=== PATIENT | female | born 1980 | race Caucasian/White ===

== ENCOUNTER 2018-03-25 13:40 | Emergency (ER) | payer OTHER, SELFPAY ==
[2018-03-25 14:20] LABS: #Basophils 0.1 thou/uL (0.0-0.2); #Eosinphils 0.6 thou/uL (0.0-0.7); #Lymphocytes 3.6 thou/uL (1.20-3.40); #Monocytes 0.8 thou/uL (0.11-0.59); #Neutrophils 8.4 thou/uL (1.40-6.50); %Basophils 0.5 % (0.0-1.0); %Eosinophils 4.5 % (0.0-10.0); %Lymphocytes 26.7 % (21.0-51.0); %Monocytes 5.7 % (0.0-10.0); %Neutrophils 62.6 % (42.0-75.0); Hemoglobin 12.7 g/dL (12.0-16.0); Mean Corpuscular HGB CONC 31.4 g/dL (32.0-36.0); Mean Corpuscular Volume 82.7 fL (78.0-98.0); Mean Platelet Volume 7.9 fL (7.4-10.4); Platelet Count 338 thou/uL (130-400); RBC Distribution Width 14.9 % (11.5-14.5); Red Blood Cell (RBC) Count 4.88 mill/uL (4.20-5.40); White Blood Cell (WBC) Count 13.3 thou/uL (4.8-10.8)
[2018-03-25 14:28] LABS: BHCG - Serum Negative (NEGATIVE); Pregs Control Background? CLEAR/WHITE (CLR/WHITE); Pregs Control Bar Appear? YES (CONTROL BAR)
[2018-03-25 14:41] LABS: ALT (SGPT) 20 U/L (8-55); AST (SGOT) 16 U/L (5-34); Albumin 4.4 g/dL (3.5-5.0); Alkaline Phosphatase 86 U/L (40-150); Anion Gap 17 mmol/L (10-20); BUN (Urea Nitrogen) 11 mg/dL (7.0-18.7); Bilirubin, Total 0.3 mg/dL (0.2-1.2); Calc. Creatinine Clearance 0 mL/min (70-130); Calcium 9.9 mg/dL (7.8-10.44); Carbon Dioxide 19 mmol/L (22-29); Chloride 107 mmol/L (98-107); Estimated GFR-MDRD Greater than 90; Globulin 3.3 g/dL (2.4-3.5); Glucose 83 mg/dL (70-105); Protein, Total 7.7 g/dL (6.0-8.3); Sodium 139 mmol/L (136-145)
[2018-03-25 14:51] LABS: Bilirubin Negative (Negative); Blood, Urine Negative (Negative); Clarity CLEAR (Clear); Glucose, Urine (Dipstick) Negative (Negative); Leukocyte Small (Negative); Nitrite Negative (Negative); Protein, Urine (Dipstick) Negative (Neg-Trace); Specific Gravity, Urine 1.022 (1.002-1.036); Urobilinogen 0.2 mg/dL (0.2-1.0); pH, Urine 5.5 (5.0-9.0)
[2018-03-25 14:53] LABS: Bacteria/HPF Rare-Few HPF (None Seen); Hyaline Casts/LPF 4-6 HYALINE CAST LPF (0-3 Hyaline); Squamous Epithelial 0-3 HPF (0-3)
[2018-03-25 15:00] LABS: Amphetamine Not Detected (NotDetected); Barbiturates Screen Not Detected (NotDetected); Benzodiazepine Screen Not Detected (NotDetected); Cocaine Metabolite Screen Not Detected (NotDetected); Medtox Control Line Valid? VALID (VALID); Medtox Reader # READER 1; Methadone Not Detected (NotDetected); Methamphetamine Not Detected (NotDetected); Opiate Screen Not Detected (NotDetected); Oxycodone Screen Not Detected (NotDetected); Phencyclidine (PCP) Not Detected (NotDetected); THC/Cannabinoid Screen Not Detected (NotDetected); Tricyclic Screen Not Detected (NotDetected)
[2018-03-25 15:05] LABS: RBC/HPF None Seen HPF (0-3)
--- NOTE | 2018-03-25 15:26 | CT ---
CT BRAIN WITHOUT CONTRAST: History: Syncope. FINDINGS: No evidence of infarct, hemorrhage, midline shift or abnormal extraaxial fluid collections are seen. The ventricular size is normal the basilar cisterns patent. Bony calvarium is intact. There is mucosa l disease in the sphenoid sinus. IMPRESSION: No CT evidence of acute intracranial process. POS: C
[2018-03-25] MEDS ORDERED: Ibuprofen 800 MG TAB ONE (16:12)
--- NOTE | 2018-03-25 16:17 | RAD ---
CERVICAL SPINE FOUR VIEWS: History: Fall. Syncope. FINDINGS: Vertebral body heights and AP alignment are maintained. Mild rightward convex curvature on the fronta l view. Cervicothoracic junction is intact. No acute fracture or dislocation. IMPRESSION: No acute osseous abnormalities are demonstrated. POS: [facility]
[2018-03-25] MEDS ORDERED: Cyclobenzaprine 10 MG TAB ONE (17:26)
[2018-03-25] MEDS ORDERED: Acetaminophen 500 MG TAB ONE (18:11)
--- NOTE | 2018-03-29 16:00 | EKG ---
Test Reason : LOC Blood Pressure : / mmHG Vent. Rate : 076 BPM Atrial Rate : 076 BPM P-R Int : 164 ms QRS Dur : 084 ms QT Int : 386 ms P-R-T Axes : 049 021 034 degrees QTc Int : 434 ms Normal sinus rhythm Normal ECG Confirmed by LUISA TROTTER ([id number]), state editor DIEGO RAYO ([id number]) on 03/29/2018 3:59:52 PM Referred By: SERGO Confirmed By:LUISA TROTTER
== END 2018-03-25 18:24 | disposition home or self-care (01) ==
LOC: ERS 13:40
DX: F07.81 Postconcussional syndrome (principal); F19.10 Other psychoactive substance abuse, uncomplicated; K21.9 Gastro-esophageal reflux disease without esophagitis; F32.9 Major depressive disorder, single episode, unspecified; F17.210 Nicotine dependence, cigarettes, uncomplicated; J45.909 Unspecified asthma, uncomplicated; M17.0 Bilateral primary osteoarthritis of knee
CPT/HCPCS: 36415; 70450; 72040; 80053; 80306; 81003; 81015; 84146; 84703; 85025; 93005; 96360; 96361

== ENCOUNTER 2019-08-12 20:59 | Emergency (ER) | payer OTHER ==
[2019-08-12] MEDS ORDERED: Metoclopramide HCl 10 MG/2 ML VIAL ONE (22:13)
--- NOTE | 2019-08-13 09:51 | ULT ---
PELVIC ULTRASOUND: HISTORY: Positive HCG of 200. Pelvic pain. FINDINGS: Real-time imaging of the pelvis was obtained both transabdominally as well as with an endovaginal pro be. Uterus is somewhat retroverted and difficult to assess. It measures 7.5 cm in length. An ill-d efined tiny cystic structure is seen in the fundus region. It measures 6 mm which would correspond t o 5 weeks 2 days, although this is not definitively a gestational sac. No pole or yolk sac fredi ntified. A 2.2 cm right ovarian cyst is noted. The left ovary is not visualized. DOPPLER EVALUATION WITH SPECTRAL ANALYSIS: Normal flow is shown to the right ovary. IMPRESSION: Questionable early intrauterine gestational sac. Followup ultrasound would be recommended. POS: [facility]
== END 2019-08-12 23:24 | disposition home or self-care (01) ==
LOC: ERS 20:59
DX: O26.891 Other specified pregnancy related conditions, first trimester (principal); R10.30 Lower abdominal pain, unspecified; R10.2 Pelvic and perineal pain; O99.341 Other mental disorders complicating pregnancy, first trimester; F41.9 Anxiety disorder, unspecified; F32.9 Major depressive disorder, single episode, unspecified; O99.331 Smoking (tobacco) complicating pregnancy, first trimester; F17.210 Nicotine dependence, cigarettes, uncomplicated; O99.89 Other specified diseases and conditions complicating pregnancy, childbirth and the puerperium; M17.0 Bilateral primary osteoarthritis of knee; Z3A.01 Less than 8 weeks gestation of pregnancy
CPT/HCPCS: 76856; 96374; J2765

== ENCOUNTER 2019-08-14 20:51 | Emergency (ER) | payer OTHER ==
[2019-08-14] MEDS ORDERED: Ondansetron ODT 4 MG TAB ONE (22:12)
--- NOTE | 2019-08-14 22:12 | ULT ---
TRANSABDOMINAL TRANSVAGINAL PELVIC ULTRASOUND DATE:: 08/14/2019 9:11 PM CLINICAL HISTORY: Follow-up of undetermined location. COMPARISON: Prior pelvic ultrasound dated August 12, 2019 TECHNIQUE: Grayscale, color Doppler and spectral Doppler images were obtained of the pelvis see a tra nsabdominal and transvaginal approach FINDINGS: UTERUS: Size: 9.1 x 4.9 x 4.5 cm Mass: None Cervix: Small nabothian cyst is stable Endometrial Thickness: 2 mm. Previously suspected intrauterine gestational sac is no longer identifi ed. OVARIES: Size: Right measures 3.8 x 1.8 x 1.3 cm; Left ovary was not well seen Mass: There is a 1.7 cm cyst within the right ovary.. CUL-DE-SAC: Minimal free fluid IMPRESSION: The small suspected intrauterine gestational sac seen on the comparison examination is no longer iden tified. Findings can be seen with of undetermined location as a pseudogestational sac with ectopic is not entirely excluded. No definite extrauterine mass is demonstrated. Findi ngs also may reflect sequela of a missed . Early is still not excluded. Recommend correlation with beta-hCG.
== END 2019-08-15 00:10 | disposition home or self-care (01) ==
LOC: ERS 20:51
DX: O99.89 Other specified diseases and conditions complicating pregnancy, childbirth and the puerperium (principal); R11.0 Nausea; M19.90 Unspecified osteoarthritis, unspecified site; O99.341 Other mental disorders complicating pregnancy, first trimester; F41.9 Anxiety disorder, unspecified; F32.9 Major depressive disorder, single episode, unspecified; Z87.891 Personal history of nicotine dependence; Z3A.01 Less than 8 weeks gestation of pregnancy
CPT/HCPCS: 36415; 76856; 84702; Q0162

== ENCOUNTER 2019-11-28 22:55 | Emergency (ER) | payer OTHER ==
[2019-11-28 23:35] LABS: Bacteria/HPF 3+ HPF (None Seen); Bilirubin Negative (Negative); Blood, Urine Negative (Negative); Clarity Turbid (Clear); Glucose, Urine (Dipstick) Normal (Negative); Ketone, Urine 20 mg/dL (Negative); Leukocyte 250 Leu/uL (Negative); Nitrite Negative (Negative); Protein, Urine (Dipstick) 20 mg/dL (Neg-Trace); Specific Gravity, Urine 1.025 (1.002-1.036); Urobilinogen Normal mg/dL (Less than 2); WBC/HPF 21-50 HPF (0-3); pH, Urine 5.5 (5.0-9.0)
[2019-11-28 23:50] LABS: #Basophils 0.1 thou/uL (0.0-0.2); #Eosinphils 0.4 thou/uL (0.0-0.7); #Lymphocytes 3.2 thou/uL (1.20-3.40); #Monocytes 0.6 thou/uL (0.11-0.59); #Neutrophils 8.7 thou/uL (1.40-6.50); %Basophils 0.4 % (0.0-1.0); %Eosinophils 2.8 % (0.0-10.0); %Lymphocytes 24.5 % (21.0-51.0); %Monocytes 4.9 % (0.0-10.0); %Neutrophils 67.5 % (42.0-75.0); Hemoglobin 10.7 g/dL (12.0-16.0); Mean Corpuscular HGB CONC 34.8 g/dL (32.0-36.0); Mean Corpuscular Volume 83.2 fL (78.0-98.0); Mean Platelet Volume 8.7 fL (7.4-10.4); Platelet Count 263 thou/uL (130-400); RBC Distribution Width 14.4 % (11.5-14.5); Red Blood Cell (RBC) Count 3.69 mill/uL (4.20-5.40); White Blood Cell (WBC) Count 12.9 thou/uL (4.8-10.8)
[2019-11-29 00:10] LABS: Albumin 3.7 g/dL (3.5-5.0); Anion Gap 15 mmol/L (10-20); BUN (Urea Nitrogen) 7 mg/dL (7.0-18.7); Bilirubin, Total Less than 0.2 mg/dL (0.2-1.2); Calc. Creatinine Clearance 0 mL/min (70-130); Calcium 10.1 mg/dL (7.8-10.44); Carbon Dioxide 22 mmol/L (22-29); Chloride 104 mmol/L (98-107); Estimated GFR-MDRD Greater than 90; Globulin 3.2 g/dL (2.4-3.5); Glucose 142 mg/dL (70-105); Potassium 3.4 mmol/L (3.5-5.1); Protein, Total 6.9 g/dL (6.0-8.3); Sodium 138 mmol/L (136-145)
[2019-11-29 00:11] LABS: ALT (SGPT) Less than 7 U/L (8-55); AST (SGOT) 7 U/L (5-34); Alkaline Phosphatase 85 U/L (40-110)
[2019-11-29] MEDS ORDERED: cefTRIAXone\\ROCEPHIN 1 GM VIAL ONE (01:18)
[2019-11-29] MEDS ORDERED: Acetaminophen 500 MG TAB ONE (01:18)
[2019-11-29] MEDS ORDERED: Lidocaine 2% 10 ML INJ ONE (01:18)
[2019-11-29] MEDS ORDERED: Lidocaine 1% PF 5 ML VIAL ONE (01:20)
== END 2019-11-29 03:00 | disposition home or self-care (01) ==
LOC: ERS 22:55
DX: O23.42 Unspecified infection of urinary tract in pregnancy, second trimester (principal); O20.9 Hemorrhage in early pregnancy, unspecified; O99.342 Other mental disorders complicating pregnancy, second trimester; F41.9 Anxiety disorder, unspecified; F32.9 Major depressive disorder, single episode, unspecified; Z87.891 Personal history of nicotine dependence; Z3A.19 19 weeks gestation of pregnancy
CPT/HCPCS: 36415; 80053; 81003; 81015; 84702; 85025; 86900; 86901; 90384; 96372; J0696

== ENCOUNTER 2020-01-29 20:12 | Day surgery (SDC) | payer OTHER ==
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
[2020-01-29 21:01] VITALS: BMI 27.8
[2020-01-29] MEDS ORDERED: hydrALAZINE 20 MG/ML VIAL SLOW IVP PRN (21:33)
[2020-01-29] MEDS ORDERED: Promethazine 25 MG TAB PO PRN (21:35)
[2020-01-29] MEDS ORDERED: Lactated Ringer's 1,000 ML IV SCH (21:45)
[2020-01-29] MEDS ORDERED: Butorphanol Tartrate 1 MG/ML VIAL IM PRN (22:01)
[2020-01-29] MEDS ORDERED: Butorphanol Tartrate 1 MG/ML VIAL ONE (22:03)
[2020-01-29 22:16] LABS: Bacteria/HPF None Seen HPF (None Seen); Bilirubin Negative (Negative); Blood, Urine Negative (Negative); Clarity Clear (Clear); Glucose, Urine (Dipstick) Normal (Negative); Ketone, Urine Negative (Negative); Leukocyte Negative Leu/uL (Negative); Nitrite Negative (Negative); Protein, Urine (Dipstick) Negative (Neg-Trace); RBC/HPF 0-3 HPF (0-3); Specific Gravity, Urine 1.021 (1.002-1.036); Squamous Epithelial 0-3 HPF (0-3); Urobilinogen Normal mg/dL (Less than 2); WBC/HPF 0-3 HPF (0-3)
[2020-01-29 22:17] LABS: Urine Culture Reflex No No
--- NOTE | 2020-01-29 23:19 | PDOC.BPN ---
- Brief Progress Note VP3 nml UA nml round ligament pain diagnosed will send with a few tylenol #3 for breakthrough pain use tylenol scheduled over the next couple of days F/u with pcp Manuel next week
== END 2020-01-29 23:40 | disposition home or self-care (01) ==
LOC: L&D/OP 20:12
PROVIDERS: ATTEND Obstetrics & Gynecology
DX: O99.891 Other specified diseases and conditions complicating pregnancy (principal); R10.2 Pelvic and perineal pain; M54.9 Dorsalgia, unspecified; N89.8 Other specified noninflammatory disorders of vagina; M17.0 Bilateral primary osteoarthritis of knee; O24.410 Gestational diabetes mellitus in pregnancy, diet controlled; O99.613 Diseases of the digestive system complicating pregnancy, third trimester; K21.9 Gastro-esophageal reflux disease without esophagitis; O99.343 Other mental disorders complicating pregnancy, third trimester; F41.9 Anxiety disorder, unspecified; F32.9 Major depressive disorder, single episode, unspecified; O99.513 Diseases of the respiratory system complicating pregnancy, third trimester; J45.909 Unspecified asthma, uncomplicated; O34.211 Maternal care for low transverse scar from previous cesarean delivery; O09.523 Supervision of elderly multigravida, third trimester; O09.293 Supervision of pregnancy with other poor reproductive or obstetric history, third trimester; Z3A.28 28 weeks gestation of pregnancy; Z79.899 Other long term (current) drug therapy; Z91.410 Personal history of adult physical and sexual abuse
CPT/HCPCS: 51701; 87480; 87510; 87660; 96360; 96361; 96374; 99284; J0595; Q0169

== ENCOUNTER 2020-03-04 23:28 | Day surgery (SDC) | payer OTHER ==
[2020-03-05] MEDS ORDERED: hydrALAZINE 20 MG/ML VIAL SLOW IVP PRN (00:18)
--- NOTE | 2020-03-05 00:20 | PDOC.LDHP ---
Labor and Delivery H&P Chief complaint: other (vaginal pain) HPI: 40YO @ 33.6 WGA presenting for evaluation for vaginal and lower abdominal pain. Reports the pain has been ongoing for the last 2-3 & gotten progressively worse. Rates it 10/10 on exam but was in no distress until UA was collected & pannus had to be lifted. Reports increased vaginal discharge but no change in color or odor. No dysuria but urine has appeared darker than normal. Endorses associated N/V & inability to keep anything down today but no fever/chills. Also endorses B/L lower back pain. No reported hematuria, VB or LOF. +FM. Current gestational age (weeks): 33 (33.6) Due date: 04/12/20 Grav: 5 Para: 3 ([id number]) OB History Details: #1: term ( from sids @ 3 months old) #2: term #3: term LTCS for breech presentation #4: septic @ 4 wks requiring D&C & multiple hospital visits Current complications: gestational diabetes, other (AMA, Rh negative) Abnormal US findings: Yes (LGA fetus per patient) Past Medical History: depression, asthma, anxiety, obesity, anemia, GERD, OA Current medications: pre- vitamins, other (lexapro & PRN albuterol & tylenol) Previous surgical history: low tranverse CS, dilation and curettage, other (tonsillectomy & adenoidectomy, urethral reconstruction surgery) Allergies/Adverse Reactions: Allergies Allergy/AdvReac Type Severity Reaction Status Date / Time No Known Allergies Allergy Verified 03/05/20 00:51 Social history: tobacco use - Physical Exam Vital signs reviewed and normal: yes General: NAD, other (MMM) Heart: RRR Lungs: nonlabored breathing Abdomen: gravid (TTP over and under pannus) Extremeties: normal range of motion FHT: category 1, variability present - OB Labs Blood type: B RH: negative GBS: unknown - Plan Plan: other -: 40YO @ 33.6 WGA presenting for evaluation for vaginal pain and lower abdominal and back pain for the last 2 days. Vaginal pain: VP3 collected on arrival. Patient unable to tolerate speculum exam. UA also collected via straight cath given patient's body habitus which she also barely tolerated. Abdominal and back pain: Pain over & under pannus & with pannus manipulation on exam. Severe intertrigo with sloughing of skin noted on exam likely contributing to her discomfort. Could also be 2/2 a likely UTI but will obtain a CMP to assess kidneys & LFTs. Will ensure patient has nystatin powder for this whether dc'd home or kept overnight. N/V: Suspect most likely 2/2 an acute infection. Will give IV zofran now & 1L LR. Will obtain a CMP to check electrolyte status & encourage PO hydration. A1GDM: Patient reports good control but also reports an LGA fetus per last US. CMP to assess random BG level. sIUP @ 33.6 WGA: Aware. FHTs reassuring w/ reactive NST. No contractions noted on monitor. Has appt w/ primary OB next week. Dispo: Will give IV fluids & IV stadol & zofran for pain & nausea. Further management pending laboratories as described above. Addendum - Attending - Attending Attestation Date/Time: 03/05/20 6935 I personally evaluated the patient and discussed the management with Dr. Davidson. I agree with the History, Examination, Assessment and Plan documented above with any addition or exceptions noted below.
[2020-03-05] MEDS ORDERED: Morphine IR Tab 15 MG TAB PO ONE (00:37)
[2020-03-05 00:50] VITALS: BMI 46.3
[2020-03-05] MEDS ORDERED: Ondansetron ODT 8 MG TAB SL PRN (00:52)
[2020-03-05 00:58] LABS: Bacteria/HPF None Seen HPF (None Seen); Bilirubin Negative (Negative); Blood, Urine Negative (Negative); Calcium Oxalate Crystals 3+ HPF (None Seen); Clarity Clear (Clear); Glucose, Urine (Dipstick) Normal (Negative); Ketone, Urine Negative (Negative); Leukocyte Negative Leu/uL (Negative); Nitrite Negative (Negative); Protein, Urine (Dipstick) 30 mg/dL (Neg-Trace); Specific Gravity, Urine 1.025 (1.002-1.036); pH, Urine 6.5 (5.0-9.0)
[2020-03-05 01:01] LABS: Urine Culture Reflex No No
[2020-03-05] MEDS ORDERED: Butorphanol Tartrate 1 MG/ML VIAL SLOW IVP SCH (01:15)
[2020-03-05] MEDS ORDERED: Lactated Ringer's 1,000 ML IV SCH (01:15)
[2020-03-05] MEDS ORDERED: Ondansetron PF 4 MG/2 ML Vial IVP SCH (01:15)
[2020-03-05 01:57] LABS: #Basophils 0.1 thou/uL (0.0-0.2); #Eosinphils 0.2 thou/uL (0.0-0.7); #Lymphocytes 2.6 thou/uL (1.20-3.40); #Monocytes 0.7 thou/uL (0.11-0.59); #Neutrophils 7.8 thou/uL (1.40-6.50); %Basophils 0.6 % (0.0-1.0); %Lymphocytes 22.9 % (21.0-51.0); %Monocytes 6.2 % (0.0-10.0); %Neutrophils 68.4 % (42.0-75.0); Hemoglobin 11.5 g/dL (12.0-16.0); Mean Corpuscular HGB CONC 34.3 g/dL (32.0-36.0); Mean Corpuscular Hemoglobin 29.3 pg (27.0-31.0); Mean Corpuscular Volume 85.4 fL (78.0-98.0); Mean Platelet Volume 8.5 fL (7.4-10.4); Platelet Count 250 thou/uL (130-400); Red Blood Cell (RBC) Count 3.91 mill/uL (4.20-5.40); White Blood Cell (WBC) Count 11.4 thou/uL (4.8-10.8)
[2020-03-05 02:14] LABS: ALT (SGPT) 8 U/L (8-55); AST (SGOT) 9 U/L (5-34); Albumin 3.5 g/dL (3.5-5.0); Alkaline Phosphatase 109 U/L (40-110); Anion Gap 17 mmol/L (10-20); BUN (Urea Nitrogen) 7 mg/dL (7.0-18.7); Bilirubin, Total 0.2 mg/dL (0.2-1.2); Calc. Creatinine Clearance 259 mL/min (70-130); Calcium 9.5 mg/dL (7.8-10.44); Carbon Dioxide 22 mmol/L (22-29); Chloride 102 mmol/L (98-107); Globulin 3.6 g/dL (2.4-3.5); Glucose 109 mg/dL (70-105); Potassium 3.6 mmol/L (3.5-5.1); Protein, Total 7.1 g/dL (6.0-8.3); Sodium 137 mmol/L (136-145)
--- NOTE | 2020-03-05 02:23 | PDOC.BPN ---
<Vandana Davidson - Last Filed: 03/05/20 02:37> - Brief Progress Note Encounter Date: 03/05/20 Encounter Time: 02:30 40YO @ 33.6 WGA presenting for evaluation for vaginal pain and lower abdominal and back pain for the last 2 days. Vaginal pain: VP3 collected on arrival. Patient unable to tolerate speculum exam. UA via straight cath notable for RBCs, WBCs & protein but also has calcium oxalate crystals & 4-6 squams but no bacteria. Likely just mild contamination from patient not sitting still for exam. Suspected to likely be 2/2 round ligament pain given description of being stabbing in nature. Abdominal and back pain: Pain over & under pannus & with pannus manipulation on exam. Severe intertrigo with sloughing of skin noted on exam likely contributing to her discomfort. However, due to description. Will Rx tinactin powder for this. Encouraged use of belly support belt for coinciding round ligament pain. N/V: Improved s/p zofran. Also s/p 1L LR & tolerating PO. Electrolytes & BUN/Cr WNLs so at most mild dehydration. Encouraged increased PO hydration at home. A1GDM: Patient reports good control but also reports an LGA fetus per last US. Random BG level mildly elevated at 109. sIUP @ 33.6 WGA: Aware. FHTs reassuring w/ reactive NST. No contractions noted on monitor. Has appt w/ primary OB next Saturday & was instructed to keep that appt. Dispo: Will d/c home with nausea and intertrigo meds. Will call with results of VP3 & ensure scripts are sent for this PRN based on results. Suspect at the least vulvovaginal candidiasis based on exam. Also instructed to try belly support belt to help with round ligament pain. Counseled to keep appt w/ Dr. Jackson [facility] for 03/09. <Brady Whitehead - Last Filed: 03/05/20 02:47> Addendum - Attending - Attending Attestation Date/Time: 03/05/20 0397 I personally evaluated the patient and discussed the management with Dr. Davidson. I agree with the History, Examination, Assessment and Plan documented above.
== END 2020-03-05 03:20 | disposition home or self-care (01) ==
LOC: L&D/OP 23:28
PROVIDERS: ATTEND Obstetrics & Gynecology
DX: O99.891 Other specified diseases and conditions complicating pregnancy (principal); R10.2 Pelvic and perineal pain; R10.30 Lower abdominal pain, unspecified; M54.9 Dorsalgia, unspecified; O24.410 Gestational diabetes mellitus in pregnancy, diet controlled; O99.343 Other mental disorders complicating pregnancy, third trimester; F41.9 Anxiety disorder, unspecified; F32.9 Major depressive disorder, single episode, unspecified; O99.513 Diseases of the respiratory system complicating pregnancy, third trimester; J45.909 Unspecified asthma, uncomplicated; O99.213 Obesity complicating pregnancy, third trimester; E66.9 Obesity, unspecified; O99.613 Diseases of the digestive system complicating pregnancy, third trimester; K21.9 Gastro-esophageal reflux disease without esophagitis; O34.211 Maternal care for low transverse scar from previous cesarean delivery; O09.293 Supervision of pregnancy with other poor reproductive or obstetric history, third trimester; O09.523 Supervision of elderly multigravida, third trimester; Z3A.33 33 weeks gestation of pregnancy
CPT/HCPCS: 80053; 81001; 85025; 87480; 87510; 87660; J0595; J2405

== ENCOUNTER 2020-03-27 14:05 | Inpatient (IN) | payer OTHER ==
[2020-03-27 14:58] VITALS: BMI 46.8
[2020-03-27] MEDS ORDERED: hydrALAZINE 20 MG/ML VIAL ONE (15:23)
[2020-03-27] MEDS ORDERED: hydrALAZINE 20 MG/ML VIAL SLOW IVP PRN ×2 (15:26→16:36)
[2020-03-27] MEDS ORDERED: Butorphanol Tartrate 1 MG/ML VIAL SLOW IVP PRN (15:26)
[2020-03-27] MEDS ORDERED: Promethazine HCl 25 MG/ML VIAL IM PRN ×4 (15:26→21:24)
[2020-03-27] MEDS ORDERED: Ondansetron PF 4 MG/2 ML Vial IVP PRN ×4 (15:26→21:24)
[2020-03-27] MEDS ORDERED: Bicitra 30 ML UDCUP PO PRN (15:26)
[2020-03-27] MEDS ORDERED: Famotidine/PF 20 mg/2ml Vial SLOW IVP PRN (15:26)
[2020-03-27] MEDS ORDERED: Azithromycin 500 MG in Sodium Chloride 0.9% 250 ML 250 ML IVPB SCH (15:30)
--- NOTE | 2020-03-27 15:40 | PDOC.FPROB ---
FMR OB H&P: HPI - History of Present Illness Chief Complaint: ctx Indentification: 40yo @ 37.0 complicated by A1GDM History of Present Illness: 40yo @ 37.0 complicated by A1GDM presents for contractions. Patient states she had onset of ctx at 1000 this morning, q10min, increased in intensity and frequency. Also endorses a LOF starting today, slow leak, associated foul- smelling discharge for last few days. Denies fever/chills, dysuria, CP. Endorses mild SOB but states has asthma and has been without her albuterol lately. Endorses DEL RIO, has not tried tylenol today. Denies vision changes, RUQ pain or edema. No vaginal bleeding. Endorses good movement. Primary Care Physician: Manuel FMR OB H&P: Current - Care : 5 Para: 3012 Gestational age: 37 Due date: 04/18/20 Course/Complications: A1GDM, has not checking sugars in past 2 or so weeks - OB Labs Blood type: B RH: negative Antibody Screen: negative HIV: unknown RPR: unknown HepBsAg: negative Rubella: non-immune Quad screen: negative Gonorrhea: negative Chlamydia: negative 1 hour gtt: 144 GBS: negative Additional labs: Hep C negative FMR OB H&P: History - Past Medical History PMH: Mild intermittent asthma, menorrhagia - OB History OB History: 2 - first child from [facility] c/s for breech presentation - most recent A1GDM this - SIGN MAINTENANCE History SIGN MAINTENANCE History: urethral lift No history of STDs PAP with HPV positive - Surgical History Sx History: c/s x1 Deviated septum repair Urethral lift - Social History Social History: Engaged. 0.5ppd smoker, No ETOH during , no illicits - Family History Family History: Adopted. Grandparents had DMII. FMR OB H&P: Medications - Current Home Medications: Medication Instructions Recorded Confirmed Type Escitalopram Oxalate 20 mg PO DAILY 01/29/20 03/27/20 History Pnv No.95/Ferrous Fum/Folic AC 1 tab PO DAILY 01/29/20 03/27/20 History [ Caplet] Allergies/Adverse Reactions: Allergies Allergy/AdvReac Type Severity Reaction Status Date / Time No Known Allergies Allergy Verified 03/05/20 00:51 FMR OB H&P: ROS - Review of Systems General: denies: fever/chills, weight/appetite/sleep changes, night sweats Eyes: denies: vision changes, double vision, scotomas ENT: denies: nasal congestion, rhinorrhea Cardiovascular: denies: chest pain, palpitation Respiratory: reports: shortness of breath. denies: cough, congestion Gastrointestinal: denies: abdominal pain, nausea, vomiting, diarrhea, constipation Genitourinary (Female): reports: vaginal discharge, contractions. denies: dysuria, vaginal bleeding Musculoskeletal: denies: pain Neurologic: denies: numbness, syncope Integumentary: denies: rash Psychological: denies: depression, anxiety FMR OB H&P: Vital Signs - Maternal Vital signs: BP 174/105, repeat 161/96. RR 16, HR 98, 97% RA - Heart Tones Baseline: 140 Variability: moderate Acceleration: present Deceleration: absent Category: category 1 [place] contractions every: q8min FMR OB H&P: Physical Exam - Physical Exam General: NAD, awake, alert and oriented, other (uncomfortably, breathing through ctx) HEENT: PERRLA, EOMI, MMM Neck: trachea midline Heart: RRR, normal S1/S2, no murmurs/rubs/gallops, pulses present, no edema General: CTAB, no respiratory distress, good air movement, no rales/rhonchi, no wheezing Abdomen: soft, gravid, non-tender, bowel sound present Musculoskeletal: normal gait and station, FROM in all four extremities Neurological: no focal deficit Psychiatric: intact recent and remote memory, good judgement and insight, normal mood and affect FMR OB H&P: A/P - Problem List (1) History of section Current Visit: Yes Status: Acute Code(s): Z98.891 - HISTORY OF UTERINE SCAR FROM PREVIOUS SURGERY (2) Gestational diabetes mellitus Current Visit: Yes Status: Acute Code(s): O24.419 - GESTATIONAL DIABETES MELLITUS IN , UNSP CONTROL Qualifiers: Gestational diabetes mellitus control: diet-controlled (3) Hypertension complicating Current Visit: Yes Status: Acute Code(s): O16.9 - UNSPECIFIED MATERNAL HYPERTENSION, UNSPECIFIED TRIMESTER Qualifiers: Trimester: third trimester Qualified Code(s): O16.3 - Unspecified maternal hypertension, third trimester Disposition: 40yo @ 37.0 complicated by A1GDM presents for ctx, LOF and found to have severe range pressure #Term SIUP - 37wk - Complicated by A1GDM - Severe range pressures at presentation, labs obtained, plan to proceed with rLTCS due to term with severe range BP - Ancef 3g and Azithro 500mg - Ctx on monitor, Cat 1 FHT, will continue to monitor - GBS negative #Severe range BP - 3 severe range pressures at presentation - Hydralazine given - CMP, CBC, Ur Pr/Cr - Will need mag for 24 hours - proceed with admission and c/s #A1GDM - Has not been checking sugars past few weeks, previously diet controlled - well check BG with admission labs and monitor as indicated #Mild intermittent asthma - avoid hemabate - aware #Rh negative - Rhogam pp as indicated PCP: Manuel IVF: LR @ 125cc/hr VTE: SCDs Diet: NPO Dispo: PCP notified. Admit for rLTCS at term due to severe range pressures. Pre- E labs obtained. Mag post c/s. Anesthesia consulted. Continued monitoring. Discussion: Date/Time: 03/27/20 0999 This H&P was discussed with Dr. Jackson who agrees with the above documentation a nd plan.
[2020-03-27 15:54] LABS: Hemoglobin 12.4 g/dL (12.0-16.0); Mean Corpuscular HGB CONC 33.6 g/dL (32.0-36.0); Mean Corpuscular Hemoglobin 28.4 pg (27.0-31.0); Mean Corpuscular Volume 84.6 fL (78.0-98.0); Mean Platelet Volume 9.2 fL (7.4-10.4); Platelet Count 242 thou/uL (130-400); Red Blood Cell (RBC) Count 4.36 mill/uL (4.20-5.40); White Blood Cell (WBC) Count 12.8 thou/uL (4.8-10.8)
[2020-03-27] MEDS ORDERED: Azithromycin 500 MG VIAL ONE (15:54)
[2020-03-27] MEDS ORDERED: CEFAZOLIN 3 GM in Sodium Chloride 0.9% 100 ML IVPB SCH (16:00)
[2020-03-27] MEDS ORDERED: Morphine PF 10 MG/10 ML VIAL ONE (16:08)
[2020-03-27] MEDS ORDERED: Phenylephrine 40 MG/NS 250 ML 250 ML ONE (16:08)
[2020-03-27] MEDS ORDERED: Oxytocin 10 UNITS/ML VIAL ONE (16:12)
[2020-03-27] MEDS ORDERED: Lidocaine 1% (PF) 30 ML VIAL ONE (16:31)
[2020-03-27] MEDS ORDERED: Acetaminophen 325 MG TAB PO PRN (16:36)
[2020-03-27] MEDS ORDERED: Adacel (T-DAP) 0.5 ML SYRINGE IM ONE (16:36)
[2020-03-27] MEDS ORDERED: HYDROcodone/Acetaminophen 5/325 mg Tablet PO PRN ×2 (16:36)
[2020-03-27] MEDS ORDERED: Calcium Gluconate 4.6 MEQ in Sodium Chloride 0.9% 100 ML IVPB PRN (16:36)
[2020-03-27] MEDS ORDERED: Succinylcholine 200 MG/10 ml SYRINGE FS ONE (16:41)
[2020-03-27] MEDS ORDERED: PROPOFOL 0 ML ONE (16:41)
[2020-03-27] MEDS ORDERED: Midazolam HCl 2 mg/2 ml Vial ONE ×2 (16:42→17:00)
[2020-03-27] MEDS ORDERED: Ondansetron PF 4 MG/2 ML Vial ONE (16:43)
[2020-03-27] MEDS ORDERED: Dexamethasone 4 mg/ml Vial ONE (16:43)
[2020-03-27] MEDS ORDERED: Magnesium Sulfate 20 GM/WATER 500 ML BAG IVPB SCH (16:45)
[2020-03-27] MEDS ORDERED: Magnesium Sulfate 20 gm/500 ml 20 GM/500 ML BAG IVPB SCH (16:45)
[2020-03-27 16:46] LABS: HBSAg Index 0.12 S/CO (0-0.99); HIV (1/2) Antibody/Antigen Non-Reactive (NonReactive); HIV 1/2 INDEX 0.08 S/CO (<1.00); Hep B Surf Ag Non-Reactive S/CO (NonReactive)
[2020-03-27] MEDS ORDERED: NS w/ Oxytocin 30 units 500 ML IVPB SCH (17:00)
[2020-03-27 17:05] LABS: Syphilis Antibody Nonreactive (Nonreactive); Syphilis Antibody Index 0.06 S/CO (<1.00 Non-Reactive)
[2020-03-27] MEDS ORDERED: Ketorolac Tromethamine 30 MG/ML VIAL ONE (17:08)
[2020-03-27] MEDS ORDERED: Ondansetron HCl/PF 4 MG/2 ML Vial IVP PRN (17:09)
[2020-03-27] MEDS ORDERED: Meperidine HCl/PF 25 MG/ML VIAL SLOW IVP PRN (17:09)
[2020-03-27] MEDS ORDERED: diphenhydrAMINE 50 MG/ML VIAL IVP PRN ×3 (17:09→21:24)
[2020-03-27] MEDS ORDERED: Promethazine HCl 25 MG SUPP PR PRN ×2 (17:09→17:14)
[2020-03-27] MEDS ORDERED: Naloxone HCl 0.4 mg/ml Vial IVP PRN ×4 (17:09→17:14)
[2020-03-27] MEDS ORDERED: HYDROmorphone 2 MG/ML VIAL SLOW IVP PRN (17:09)
[2020-03-27] MEDS ORDERED: L&D-Morphine 4 MG/ML VIAL SLOW IVP PRN (17:09)
[2020-03-27] MEDS ORDERED: Naloxone HCl 0.4 mg/ml Vial IV PRN ×3 (17:09→21:24)
[2020-03-27] MEDS ORDERED: Fentanyl 100 MCG/2 ML VIAL ONE (17:14)
[2020-03-27] MEDS ORDERED: Communication Order-Pharmacy FS SCH ×3 (17:15→21:30)
[2020-03-27 17:20] LABS: ALT (SGPT) 7 U/L (8-55); AST (SGOT) 10 U/L (5-34); Albumin 3.6 g/dL (3.5-5.0); Alkaline Phosphatase 158 U/L (40-110); Anion Gap 17 mmol/L (10-20); BUN (Urea Nitrogen) 7 mg/dL (7.0-18.7); Bilirubin, Total 0.3 mg/dL (0.2-1.2); Calc. Creatinine Clearance 262 mL/min (70-130); Calcium 9.7 mg/dL (7.8-10.44); Carbon Dioxide 21 mmol/L (22-29); Chloride 104 mmol/L (98-107); Globulin 3.1 g/dL (2.4-3.5); Glucose 82 mg/dL (70-105); Magnesium 1.6 mg/dL (1.6-2.6); Potassium 3.9 mmol/L (3.5-5.1); Protein, Total 6.7 g/dL (6.0-8.3); Sodium 138 mmol/L (136-145)
[2020-03-27] MEDS ORDERED: Meperidine HCl/PF 25 MG/ML VIAL ONE (18:15)
--- NOTE | 2020-03-27 18:37 | OP ---
DATE OF PROCEDURE: 03/27/2020 TIME OF SERVICE: 1700 hours. PREOPERATIVE DIAGNOSES: Polyhydramnios, severe gestational hypertension at 37 weeks' gestation, prior section x1. POSTOPERATIVE DIAGNOSES: Polyhydramnios, severe gestational hypertension at 37 weeks' gestation, prior section x1. PROCEDURE PERFORMED: Repeat low-transverse section without extension. SAND CARRIER: Betty Ngo MD for [facility] Obstetric Hospitalist. ANESTHESIA: Dr. Bradley Joe. Subarachnoid block. MEDICATIONS: 3 g Ancef, 500 Zithromax preincision, DVT prophylaxis, SCDs, wound prophylaxis, DARLIN wound vacuum device. DISPOSITION: LICU care for magnesium and postoperative care. DRAINS: Lee to gravity. OPERATIVE FINDINGS: 1. Vigorous male , cephalic presentation to NICU with persistent mild to moderate respiratory distress. Weight and Apgars pending. 2. Significant polyhydramnios encountered at hysterotomy. 3. Normal-appearing placenta. 4. Uterus with adhesions, anterior abdominal wall from prior delivery. HEMOSTASIS: Clear urine. COUNTS: Correct at the end of the procedure. DISPOSITION: Recovery room in good condition. DESCRIPTION OF PROCEDURE: After obtaining appropriate informed consent, the patient was taken to the operating room, where subarachnoid block was achieved without difficulty. The patient was prepped and draped in the usual manner. Previous Pfannenstiel incision was identified, incised sharply, and carried down to the fascia in the midline, extended superiorly and laterally with curved Angulo scissors. Rectus dissected off sharply, superiorly and inferiorly, divided in the midline. Peritoneum entered bluntly, taking care to avoid trauma to the underlying viscera. Adhesions on the left side of the uterus approximately 2 cm above the lower uterine segment were encountered and taken down using Bovie cautery. The Rich O retractor was placed inside. The lower uterine segment was identified and a hysterotomy was made. Suction cannula was introduced to the uterine cavity to pull the amniotic fluid down prior to extension of the hysterotomy. Once the fluid had been pulled down approximately 2.5 L of amniotic fluid, the hysterotomy was extended superiorly and laterally with finger fractionization. 's head elevated to hysterotomy, delivered the rest of the infant on the abdomen, suctioned cord clamped and cut, handed off to the team in attendance. Usual cord blood sample obtained. Placenta delivered manually. Hysterotomy was noted to be without extension, closed using a running continuous 0 chromic locking suture x2 layered closure. Area of the uterine adhesion to the anterior abdominal wall was noted to be bleeding above the level of hysterotomy and was oversewed using 0 chromic in a horizontal mattress fashion and then FloSeal applied against it for 3 minutes with a moist lap sponge. Good hemostasis was noted after placement. Suction irrigation carried out. Reinspection of hysterotomy revealed it to be dry. The Rich O retractor was removed and counts were correct x1. The rectus was inspected and noted to be dry. The fascia was reapproximated with running continuous 0 PDS suture x2. Subcutaneous tissue was irrigated, rendered hemostatic with Bovie cautery, reapproximated using a 2-0 plain gut. Skin reapproximated with awilda and the DARLIN vacuum device applied. The patient was entered into LICU care. Anticipate 2- to 3-day hospitalization. Job ID: [id number]
[2020-03-27 19:57] LABS: SARS-CoV-2 PCR by NAA Not Detected (NotDetected)
[2020-03-27] MEDS ORDERED: HYDROmorphone 0.5 MG/0.5 ML SYRINGE SLOW IVP PRN (20:00)
[2020-03-27] MEDS ORDERED: diphenhydrAMINE 25 MG CAP PO PRN (21:24)
[2020-03-27] MEDS ORDERED: fentaNYL Citrate/PF 2,000 MCG in Sodium Chloride 0.9% 60 ML IV PRN (21:24)
[2020-03-27] MEDS ORDERED: diphenhydrAMINE 50 MG/ML VIAL IM PRN (21:24)
[2020-03-27] MEDS ORDERED: Zolpidem Tartrate 5 MG TAB PO PRN (21:24)
[2020-03-27] MEDS ORDERED: Ibuprofen 800 MG TAB PO SCH (22:00)
[2020-03-27] MEDS ORDERED: Ketorolac Tromethamine 30 MG/ML VIAL IVP SCH (23:15)
[2020-03-28] MEDS ORDERED: Escitalopram Oxalate 20 mg Tablet PO SCH (03:00)
[2020-03-28] MEDS ORDERED: Promethazine 25 MG TAB PO PRN (03:04)
[2020-03-28] MEDS: Lactated Ringer's 1,000 ML IV SCH ×2 (05:24→07:30)
--- NOTE | 2020-03-28 07:59 | DIS ---
DATE OF ADMISSION: 03/27/2020 DATE OF DISCHARGE: 03/28/2020 TIME OF SERVICE: 719 HOSPITAL COURSE: Ms. Carmen is postoperative day #0 from repeat for severe gestational hypertension. Prior section, active labor, 37 weeks gestation. She is being discharged to be transferred over to the [facility]. She is resting comfortably. PHYSICAL EXAMINATION: VITAL SIGNS: Blood pressures are 130s to 140s over 80s. Good urine output. LUNGS: Clear to auscultation bilaterally. HEART: Regular rate and rhythm. ABDOMEN: Soft, nontender. Her incision, intact and dry. DARLIN wound VAC in place. IMPRESSION: Severe gestational hypertension, postoperative day #0. PLAN: Discharge, transferred to [place]. Continue magnesium. Continue Lee. Advanced diet. Anticipate discharge on 03/30 or 03/31. Job ID: [id number]
[2020-03-28] MEDS ORDERED: Ibuprofen 800 MG TAB PO SCH (22:00)
[2020-03-29] MEDS ORDERED: Escitalopram Oxalate 20 mg Tablet PO SCH (09:00)
== END 2020-03-28 07:48 | disposition short-term general hospital (02) | DRG 788 ==
LOC: L&D/OP 14:05 → L&D 16:23
PROVIDERS: ADMIT Obstetrics & Gynecology; ATTEND Obstetrics & Gynecology
PROC: 10D00Z1 Extraction of Products of Conception, Low, Open Approach (ICD-10-PCS; principal; 2020-03-24)
DX: O34.211 Maternal care for low transverse scar from previous cesarean delivery (principal); O40.3XX0 Polyhydramnios, third trimester, not applicable or unspecified; Z20.822 Contact with and (suspected) exposure to COVID-19; O24.429 Gestational diabetes mellitus in childbirth, unspecified control; J45.20 Mild intermittent asthma, uncomplicated; O99.513 Diseases of the respiratory system complicating pregnancy, third trimester; O99.334 Smoking (tobacco) complicating childbirth; F17.200 Nicotine dependence, unspecified, uncomplicated; O13.4 Gestational [pregnancy-induced] hypertension without significant proteinuria, complicating childbirth; Z3A.37 37 weeks gestation of pregnancy; Z37.0 Single live birth
CPT/HCPCS: 36415; 51702; 80053; 81003; 82570; 83735; 85027; 86780; 86850; 86870; 86900; 86901; 87340; 87389; 87635; 88307; 99285; J0360; J0456; J0690; J1100; J1170; J1885; J2001; J2175; J2250; J2270; J2405; J2704; J3010; J3475; J3490; Q0169; U0003; U0005

== ENCOUNTER 2021-01-08 22:14 | Inpatient (IN) | payer OTHER ==
[2021-01-08 22:40] VITALS: BMI 43.9
[2021-01-09] MEDS ORDERED: Ondansetron HCl/PF 4 MG in Sodium Chloride 0.9% 50 ML IVPB PRN (00:08)
[2021-01-09] MEDS: Ondansetron PF 4 MG/2 ML Vial IVP PRN (03:42)
[2021-01-09] MEDS: Morphine 4 MG/ML VIAL SLOW IVP PRN ×5 (03:42→22:57)
[2021-01-09] MEDS ORDERED: Acetaminophen 650 MG Suppository PR PRN (04:15)
[2021-01-09 05:27] LABS: #Eosinphils 0.5 thou/uL (0.0-0.7); #Lymphocytes 2.6 thou/uL (1.20-3.40); #Monocytes 0.6 thou/uL (0.11-0.59); #Neutrophils 6.5 thou/uL (1.40-6.50); %Basophils 0.3 % (0.0-1.0); %Lymphocytes 25.2 % (21.0-51.0); %Monocytes 6.2 % (0.0-10.0); %Neutrophils 63.3 % (42.0-75.0); Hemoglobin 11.9 g/dL (12.0-16.0); Mean Corpuscular HGB CONC 32.7 g/dL (32.0-36.0); Mean Corpuscular Hemoglobin 27.7 pg (27.0-31.0); Mean Corpuscular Volume 84.6 fL (78.0-98.0); Mean Platelet Volume 7.3 fL (7.4-10.4); Platelet Count 330 thou/uL (130-400); RBC Distribution Width 13.5 % (11.5-14.5); Red Blood Cell (RBC) Count 4.31 mill/uL (4.20-5.40); White Blood Cell (WBC) Count 10.3 thou/uL (4.8-10.8)
[2021-01-09 05:48] LABS: Anion Gap 13 mmol/L (10-20); BUN (Urea Nitrogen) 7 mg/dL (7.0-18.7); Calc. Creatinine Clearance 229 mL/min (70-130); Calcium 9.3 mg/dL (7.8-10.44); Carbon Dioxide 23 mmol/L (22-29); Chloride 103 mmol/L (98-107); Glucose 110 mg/dL (70-105); Potassium 3.8 mmol/L (3.5-5.1); Sodium 135 mmol/L (136-145)
[2021-01-09] MEDS: Sodium Chloride 0.9% 1,000 ML IV SCH ×2 (06:24→16:31)
[2021-01-09] MEDS: HYDROcodone/Acetaminophen 10/325 mg Tablet PO PRN ×2 (06:54→19:46)
[2021-01-09] MEDS: Acetaminophen 325 MG TAB PO PRN (07:51)
[2021-01-09] MEDS: Enoxaparin Sodium 40 MG/0.4 ML SYRINGE SC SCH (07:52)
[2021-01-09] MEDS ORDERED: FLU VACC QS2021-22(6MOS UP)/PF 60 MCG/0.5 ML SYRINGE IM ONE (09:00)
[2021-01-09] MEDS: Pantoprazole 40 MG VIAL IVP SCH (10:59)
[2021-01-09 11:21] LABS: SARS-CoV-2 PCR by NAA Not Detected (NotDetected)
[2021-01-09] MEDS ORDERED: Morphine 4 MG/ML VIAL SLOW IVP PRN (13:38)
[2021-01-09] MEDS: busPIRone HCl 5 MG TAB PO SCH (19:48)
[2021-01-09] MEDS: Docusate 100 MG CAP PO SCH (19:48)
[2021-01-09] MEDS ORDERED: Melatonin 3 MG TAB PO SCH (21:15)
[2021-01-10] MEDS: Sodium Chloride 0.9% 1,000 ML IV SCH (02:05)
[2021-01-10] MEDS: Acetaminophen 325 MG TAB PO PRN ×2 (06:31→16:45)
[2021-01-10] MEDS: Ondansetron PF 4 MG/2 ML Vial IVP PRN ×2 (06:36→19:53)
[2021-01-10 07:08] LABS: #Eosinphils 0.5 thou/uL (0.0-0.7); #Lymphocytes 3.1 thou/uL (1.20-3.40); #Monocytes 0.7 thou/uL (0.11-0.59); #Neutrophils 6.2 thou/uL (1.40-6.50); %Basophils 0.4 % (0.0-1.0); %Eosinophils 4.6 % (0.0-10.0); %Lymphocytes 29.4 % (21.0-51.0); %Monocytes 6.3 % (0.0-10.0); %Neutrophils 59.3 % (42.0-75.0); Hemoglobin 11.6 g/dL (12.0-16.0); Mean Corpuscular HGB CONC 31.5 g/dL (32.0-36.0); Mean Corpuscular Hemoglobin 26.6 pg (27.0-31.0); Mean Corpuscular Volume 84.6 fL (78.0-98.0); Mean Platelet Volume 7.5 fL (7.4-10.4); Platelet Count 328 thou/uL (130-400); RBC Distribution Width 13.5 % (11.5-14.5); Red Blood Cell (RBC) Count 4.35 mill/uL (4.20-5.40); White Blood Cell (WBC) Count 10.5 thou/uL (4.8-10.8)
[2021-01-10 07:18] LABS: ALT (SGPT) 16 U/L (8-55); AST (SGOT) 15 U/L (5-34); Albumin 3.5 g/dL (3.5-5.0); Alkaline Phosphatase 67 U/L (40-110); Anion Gap 10 mmol/L (10-20); BUN (Urea Nitrogen) 9 mg/dL (7.0-18.7); Bilirubin, Total 0.2 mg/dL (0.2-1.2); Calc. Creatinine Clearance 219 mL/min (70-130); Calcium 9.1 mg/dL (7.8-10.44); Carbon Dioxide 28 mmol/L (22-29); Chloride 105 mmol/L (98-107); Globulin 2.9 g/dL (2.4-3.5); Glucose 111 mg/dL (70-105); Potassium 3.8 mmol/L (3.5-5.1); Protein, Total 6.4 g/dL (6.0-8.3); Sodium 139 mmol/L (136-145)
[2021-01-10] MEDS: FLUoxetine HCl 10 MG CAP PO SCH (11:01)
[2021-01-10] MEDS: busPIRone HCl 5 MG TAB PO SCH ×2 (11:01→19:53)
[2021-01-10] MEDS: Enoxaparin Sodium 40 MG/0.4 ML SYRINGE SC SCH (11:01)
[2021-01-10] MEDS: Docusate 100 MG CAP PO SCH ×2 (11:01→19:53)
[2021-01-10] MEDS: Morphine 4 MG/ML VIAL SLOW IVP PRN ×2 (11:02→15:16)
[2021-01-10] MEDS: Pantoprazole 40 MG VIAL IVP SCH (11:02)
[2021-01-10] MEDS: HYDROcodone/Acetaminophen 10/325 mg Tablet PO PRN (19:52)
[2021-01-11] MEDS: Morphine 4 MG/ML VIAL SLOW IVP PRN ×2 (00:59→04:48)
[2021-01-11 08:01] VITALS: BP 112/69; TEMP 97.9
[2021-01-11] MEDS: FLUoxetine HCl 10 MG CAP PO SCH (08:22)
[2021-01-11] MEDS: busPIRone HCl 5 MG TAB PO SCH (08:22)
[2021-01-11] MEDS: Docusate 100 MG CAP PO SCH (08:23)
[2021-01-11] MEDS: Ondansetron PF 4 MG/2 ML Vial IVP PRN (08:23)
[2021-01-11] MEDS: Enoxaparin Sodium 40 MG/0.4 ML SYRINGE SC SCH (08:23)
== END 2021-01-11 11:15 | disposition home or self-care (01) | DRG 392 ==
LOC: T4-B 22:14 → INTOOBSV 22:14 → OBSVTOIN 01-10 14:41
PROVIDERS: ADMIT Student in an Organized Health Care Education/Training Program; ATTEND Family Medicine
DX: R10.13 Epigastric pain (principal); Z68.41 Body mass index [BMI] 40.0-44.9, adult; F17.210 Nicotine dependence, cigarettes, uncomplicated; E66.01 Morbid (severe) obesity due to excess calories; N32.89 Other specified disorders of bladder; Z87.440 Personal history of urinary (tract) infections; K90.0 Celiac disease; N20.0 Calculus of kidney; Z20.822 Contact with and (suspected) exposure to COVID-19; M19.90 Unspecified osteoarthritis, unspecified site; K21.9 Gastro-esophageal reflux disease without esophagitis; D64.9 Anemia, unspecified; Z90.710 Acquired absence of both cervix and uterus; Z88.8 Allergy status to other drugs, medicaments and biological substances; Z79.899 Other long term (current) drug therapy; F41.9 Anxiety disorder, unspecified; F32.A Depression, unspecified
CPT/HCPCS: 36415; 36416; 76705; 78227; 80048; 80053; 85025; A9537; C9113; J1650; J2270; J2405; J7050; U0003; U0005

== ENCOUNTER 2021-09-26 17:27 | Emergency (ER) | payer OTHER ==
[2021-09-26 18:17] LABS: #Basophils 0.1 thou/uL (0.0-0.2); #Eosinphils 0.4 thou/uL (0.0-0.7); #Lymphocytes 4.3 thou/uL (1.20-3.40); #Monocytes 0.7 thou/uL (0.11-0.59); #Neutrophils 7.5 thou/uL (1.40-6.50); %Basophils 0.7 % (0.0-1.0); %Eosinophils 2.8 % (0.0-10.0); %Lymphocytes 33.3 % (21.0-51.0); %Monocytes 5.5 % (0.0-10.0); %Neutrophils 57.7 % (42.0-75.0); Hemoglobin 13.3 g/dL (12.0-16.0); Mean Corpuscular HGB CONC 32.2 g/dL (32.0-36.0); Mean Corpuscular Hemoglobin 27.4 pg (27.0-31.0); Mean Corpuscular Volume 85.2 fL (78.0-98.0); Mean Platelet Volume 8.3 fL (7.4-10.4); Platelet Count 267 thou/uL (130-400); RBC Distribution Width 13.3 % (11.5-14.5); Red Blood Cell (RBC) Count 4.86 mill/uL (4.20-5.40); White Blood Cell (WBC) Count 12.9 thou/uL (4.8-10.8)
[2021-09-26 18:27] LABS: BHCG - Serum Negative (NEGATIVE); Pregs Control Background? CLEAR/WHITE (CLR/WHITE); Pregs Control Bar Appear? YES (CONTROL BAR)
[2021-09-26 18:35] LABS: ALT (SGPT) 23 U/L (8-55); AST (SGOT) 21 U/L (5-34); Albumin 4.6 g/dL (3.5-5.0); Alkaline Phosphatase 90 U/L (40-110); Anion Gap 13 mmol/L (10-20); BUN (Urea Nitrogen) 8 mg/dL (7.0-18.7); Bilirubin, Total 0.4 mg/dL (0.2-1.2); Calc. Creatinine Clearance 0 mL/min (70-130); Carbon Dioxide 25 mmol/L (22-29); Chloride 106 mmol/L (98-107); Estimated GFR 105; Globulin 3.5 g/dL (2.4-3.5); Glucose 90 mg/dL (70-105); Lipase 11 U/L (8-78); Potassium 3.6 mmol/L (3.5-5.1); Protein, Total 8.1 g/dL (6.0-8.3); Sodium 140 mmol/L (136-145)
[2021-09-26 18:42] LABS: Bilirubin Negative (Negative); Blood, Urine Negative (Negative); Clarity Clear (Clear); Glucose, Urine (Dipstick) Normal (Negative); Ketone, Urine Negative (Negative); Leukocyte 500 Leu/uL (Negative); Nitrite Negative (Negative); Protein, Urine (Dipstick) Negative (Neg-Trace); RBC/HPF 0-3 HPF (0-3); Specific Gravity, Urine 1.026 (1.002-1.036); Urobilinogen Normal mg/dL (Less than 2); WBC/HPF 21-50 HPF (0-3); pH, Urine 5.5 (5.0-9.0)
[2021-09-26 18:44] LABS: Bacteria/HPF 1+ HPF (None Seen)
[2021-09-26] MEDS ORDERED: Ondansetron ODT 4 MG TAB ONE (19:57)
[2021-09-26] MEDS ORDERED: diphenhydrAMINE 25 MG CAP ONE (21:13)
[2021-09-26] MEDS ORDERED: Metoclopramide HCl 10 MG TAB ONE (21:13)
== END 2021-09-26 21:25 | disposition home or self-care (01) ==
LOC: ERS 17:27
DX: R11.2 Nausea with vomiting, unspecified (principal); R51.9 Headache, unspecified; K21.9 Gastro-esophageal reflux disease without esophagitis; F17.210 Nicotine dependence, cigarettes, uncomplicated; W19.XXXA Unspecified fall, initial encounter
CPT/HCPCS: 36415; 70450; 80053; 81003; 81015; 83605; 83690; 84484; 84703; 85025; 93005; Q0162

== ENCOUNTER 2021-12-20 13:09 | Outpatient (CLI) | payer OTHER | END 2021-12-20 13:10 | disposition home or self-care (01) | LOC: BICRAD 13:09 | PROVIDERS: ATTEND Internal Medicine | DX: Z02.71 Encounter for disability determination (principal) ==